=== PATIENT | male | born 1945 | race Two or more races ===

== ENCOUNTER 2021-02-14 10:30 | Inpatient (IN) | payer OTHER ==
[~2021-02-14] VITALS: Ht 170.2 cm; Wt 86.2 kg
[2021-02-14] MEDS ORDERED: HUMALOG100 UNIT/2 (12:42)
[2021-02-14] MEDS ORDERED: ZESTRIL10 M1 PO (12:43)
[2021-02-14] MEDS ORDERED: LANTUS (12:43)
[2021-02-14] MEDS ORDERED: CYMBALTA30 MG PO (12:44)
[2021-02-14] MEDS ORDERED: LIPITOR40 M1 PO (12:44)
[2021-02-14] MEDS ORDERED: PROTON PO (12:44)
[2021-02-14] MEDS ORDERED: VITAMIN D3 PO (12:45)
[2021-02-21] MEDS ORDERED: VITAMIN D310 MC4 PO (08:23)
[2021-02-21] MEDS ORDERED: LANTUS SOL100 UNIT/1 (08:24)
== END 2021-02-23 10:11 | disposition home or self-care (01) | DRG 331 ==
LOC: O/R 02-20 05:37 → SURH 02-20 05:37
PROVIDERS: ADMIT Colon & Rectal Surgery; ATTEND Colon & Rectal Surgery
PROC: 07BC4ZX Excision of Pelvis Lymphatic, Percutaneous Endoscopic Approach, Diagnostic (ICD-10-PCS; 2021-02-20)
PROC: 0DTF4ZZ Resection of Right Large Intestine, Percutaneous Endoscopic Approach (ICD-10-PCS; principal; 2021-02-20 07:00)
DX: C18.2 Malignant neoplasm of ascending colon (principal); D12.3 Benign neoplasm of transverse colon

== ENCOUNTER 2021-06-15 14:19 | Outpatient (CLI) | payer OTHER ==
[~2021-06-15 14:19] MED LIST: CYMBALTA30 MG PO; HUMALOG100 UNIT/2; LANTUS; LANTUS SOL100 UNIT/1; LIPITOR40 M1 PO; PROTON PO; VITAMIN D3 PO; VITAMIN D310 MC4 PO; ZESTRIL10 M1 PO
== END 2021-06-15 14:25 | disposition home or self-care (01) ==
LOC: TOM 14:19
PROVIDERS: ATTEND Obstetrics & Gynecology
DX: Q33.0 Congenital cystic lung (principal); A15.0 Tuberculosis of lung; N60.02 Solitary cyst of left breast